=== PATIENT | male | born 1955 | race American Indian/Alaskan Native ===

== ENCOUNTER 2017-06-24 17:08 | Emergency (ER) | payer MEDICAID ==
[~2017-06-24] VITALS: Ht 170.2 cm; Wt 62.0 kg
[~2017-06-24 17:08] MED LIST: MUPI22OI TP; NO HOME MEDS
[2017-06-24] MEDS ORDERED: TRAM50TA2 PO (17:46)
[2017-06-24] MEDS ORDERED: AMOX500C2 PO (17:46)
[2017-06-24 18:27] VITALS: BP 135/85
== END 2017-06-24 18:30 | disposition home or self-care (01) ==
LOC: ER 17:08
DX: K02.9 Dental caries, unspecified (principal); Z98.890 Other specified postprocedural states; Z87.442 Personal history of urinary calculi; Z56.0 Unemployment, unspecified; Z88.6 Allergy status to analgesic agent; Z79.899 Other long term (current) drug therapy
CPT/HCPCS: 99283